=== PATIENT | female | born 1930 | race Caucasian/White ===

== ENCOUNTER → 2020-05-06 | Outpatient (CLI) | payer MEDICARE ==
[~2020-05-06] MED LIST: ATENOLOL50 MG PO; CLONIDINE HCL0.1 MG PO; FENOFIBRIC ACI105 MG PO; GLIMEPIRIDE2 MG PO; IRBESARTAN150 MG PO; LEVOTHYROXINE50 MCG PO; LORAZEPAM1 MG PO; NIFEDIPINE ER30 M1 PO; NORTRIPTYLINE H10 MG PO
--- NOTE | 2020-05-06 15:51 | Diagnostic Imaging Report ---
MRI BRAIN WO HISTORY: Memory loss COMPARISON: None. TECHNIQUE: Sagittal T2, axial T2, multiplanar 3-D T1, axial T2/FLAIR, axial gradient echo (or susceptibility weighted), and axial diffusion weighted MR images of the brain were obtained without contrast. DISCUSSION: Scalp/bone marrow: Unremarkable. Brain sulci: Mildly prominent. Ventricles: Compensatory dilatation. Extra-axial spaces: No masses or fluid collections. Parenchyma: Scattered T2/FLAIR hyperintense foci throughout the supratentorial white matter are likely chronic microvascular ischemic changes; the bilateral temporal poles and subinsular regions are involved. Otherwise, no mass, hemorrhage, or acute vascular insults. Vessels: Normal flow voids in major arteries and veins. Sellar/Suprasellar region: No abnormalities. Craniocervical junction: No abnormalities. Incidental findings: None. IMPRESSION: 1. No acute intracranial abnormalities. 2. Nonspecific mild supratentorial chronic microvascular ischemic change. 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 Mild generalized cerebral volume loss. Signed by: Dr. Raphael Ma M.D. on 05/06/2020 3:48 PM
== END ==
LOC: MRI 12:55
PROVIDERS: ATTEND Psychiatry & Neurology Neurology
DX: R41.3 Other amnesia (principal)
CPT/HCPCS: 70551